=== PATIENT | male | born 1985 | race Caucasian/White ===

== ENCOUNTER 2018-04-21 18:32 | Emergency (ER) | payer SELFPAY ==
[2018-04-21] MEDS ORDERED: IBUPROFEN 200 MG TAB PO ONE (19:11)
--- NOTE | 2018-04-21 19:21 | ED.PDOC ---
History of Present Illness - General Chief Complaint: General Time Seen by Provider: 04/21/18 19:10 Source: patient Exam Limitations: no limitations - History of Present Illness Initial Comments: FEVER, COUGH, MALAISE, SORE THROAT AND VOMITING SINCE YESTERDAY. Timing/Duration: other - TWO DAYS Improving Factors: nothing Worsening Factors: nothing Associated Symptoms: cough, fever/chills, malaise, nausea/vomiting Allergies/Adverse Reactions: Allergies NO KNOWN ALLERGY Allergy (Verified 04/21/18 19:10) Home Medications: Ambulatory Orders Dextromethorphan-Guaifenesin [Delsym Cough + Chest Mic 5-100 mg/5Ml] 10 ml PO BID 5 Days 04/21/18 Review of Systems - Review of Systems Constitutional: States: chills, fever, malaise EENTM: States: no symptoms reported Respiratory: States: no symptoms reported Cardiology: States: no symptoms reported Gastrointestinal/Abdominal: States: no symptoms reported Genitourinary: States: no symptoms reported Musculoskeletal: States: no symptoms reported Skin: States: no symptoms reported Neurological: States: no symptoms reported Endocrine: States: no symptoms reported Hematologic/Lymphatic: States: no symptoms reported Family Medical History - Family History Mother Family History: No Known Living Status: Still Living Father Family History: No Known Living Status: Still Living Physical Exam - Physical Exam General Appearance: Alert, Well Developed, Other - COUGHING AND FEBRILE Eye Exam: bilateral normal Ears, Nose, Throat: hearing grossly normal Neck: non-tender, full range of motion, supple Respiratory: chest non-tender, lungs clear, normal breath sounds, no respiratory distress, no accessory muscle use Cardiovascular/Chest: normal peripheral pulses, regular rate, rhythm, no edema, no gallop, no JVD, no murmur Peripheral Pulses: radial,right: 2+, radial,left: 2+ Gastrointestinal/Abdominal: normal bowel sounds, non tender, soft, no organomegaly, no pulsatile mass Rectal Exam: deferred Back Exam: normal inspection Extremity: normal range of motion Neurologic: no motor/sensory deficits, normal mood/affect, oriented x 3 Skin Exam: normal color Lymphatic: no adenopathy Progress - Progress Progress: 04/21/18 20:33 04/21/18 19:21 STREP A SCREEN CULTURE Stat Laboratory Results Group A Strep Rapid Negative (NEGATIVE) 04/21/18 19:21 04/21/18 20:33 INFLUENZA SCREEN: NEGATIVE Departure - Departure Clinical Impression: Acute viral syndrome Time of Disposition: 20:34 Disposition: Discharge to Home or Self Care Condition: Good Departure Forms: ED Discharge - Pt. Copy, Patient Portal Self Enrollment Instructions: Viral Syndrome (DC) Prescriptions: Dextromethorphan-Guaifenesin [Delsym Cough + Chest Mic 5-100 mg/5Ml] 10 ml PO BID 5 Days Home Medications: Ambulatory Orders Dextromethorphan-Guaifenesin [Delsym Cough + Chest Mic 5-100 mg/5Ml] 10 ml PO BID 5 Days 04/21/18
[2018-04-21 20:56] VITALS: BP 122/72; TEMP 99.5; O2SAT 96
== END 2018-04-21 20:56 | disposition home or self-care (01) ==
LOC: ER 18:32
DX: B34.9 Viral infection, unspecified (principal)